=== PATIENT | male | born 1935 ===

== ENCOUNTER → 2018-10-04 | Outpatient (CLI) | payer OTHER ==
[~2018-10-04] MED LIST: REGADENOSON 0.4 MG/5 ML DISP.SYRIN. IV ONE
--- NOTE | 2018-10-04 12:38 | RAD ---
MR#: [id number] Date of Study: 10/04/2018 Ordering Physician: LOGAN IVY Referring Physician: SUMA FABIAN Tech: RT Mili Burnett) (N) APPROVED REPORT Test Type: Pharmacological Stress Nurse/Tech: Jerrica Wright RN Test Indications: Dyspnea on exertion Cardiac History: Hypertension, Diabetes Medications: See Electronic Medical Record Medical History: See Electronic Medical Record Resting ECG: SR with BBB Resting Heart Rate: 66 bpm Resting Blood Pressure: 156/62mmHg Pretest Chest Pain: No chest pain Nurse/Tech Notes S1,S2 and lungs clear to auscultation. Consent: The procedure was explained to the patient in lay terms. Informed consent was witnessed. Addison eout was entered into [facility]. History and Stress Test performed by RT Sanjana (R) (N) Pharm. Details Pharmacologic stress testing was performed using 0.4mg per 5ml of regadenoson given intravenously ove r 7-10 seconds. Stress Symptoms No chest pain or symptoms. POST EXERCISE Reason for Termination: Infusion complete Target HR: No Max HR: 82 bpm Max Blood Pressure: 145/47mmHg Blood Pressure response to exercise: Normal blood pressure response during stress. Heart Rate response to exercise: WNL Chest Pain: No. Arrhythmia: No. ST Change: No. INTERPRETATION Stress EKG Conclusion: The resting EKG shows a sinus rhythm, left anterior fascicular block and nonsp ecific ST-T wave changes. The stress EKG shows no significant changes from baseline. No EKG evidence of stressed induced ischemia. Imaging Protocol IMAGE PROTOCOL: Rest Tc-99m/stress Tc-99m 1 day Rest: Stress: Viability: Radiopharm.Tc99m CtbdfpexzLm59j Sestamibi Xbom31yMe 34mCi Duration 13min. 13min. Img Date 10/04/2018 10/04/2018 Inj-Img [id number]. 60min. Rest Admin Site:IV - Left HandAdministrator:RT Nicole AllanR)(N) Stress Admin Site: IV - Left HandAdministrator: Miki Del Rio, RT (R)(N) STRESS DATA End Diast. Vol.75.0mlLVEDV index BSA46.0ml End Syst. Vol.33.0mlLVESV index BSA20.0ml Myocardial Jjyn803.0gEject. Kbynobfx41.0% Stress Scores Regional WT1.00Summed WT10.00 Regional WM0.00Summed WM13.00 LV Perfusion Stress scans show no significant defects. Rest scans showed no significant defects. Nuclear imaging shows no reversible ischemia or infarct. Wall Motion Left ventricular systolic function is intact with an ejection fraction of 56%. The inferior wall is s lightly less vigorous than the remaining call. LV Perf. Quant 17 Seg. SSS4.00 17 Seg. SRS5.00 17 Seg. SDS0.00 Stress Defect Extent (% LAD)0.00Rest Defect Extent (% LAD)0.00Rev. Defect Extent (% LAD)0.00 Stress Defect Extent (% LCX) 36.30Rest Defect Extent (% LCX)35.00Rev. Defect Extent (% LCX)0.00 Stress Defect Extent (% RCA)0.00Rest Defect Extent (% RCA)0.00Rev. Defect Extent (% RCA)0.00 Stress Defect Extent (% DAVE)6.50Rest Defect Extent (% DAVE)7.40Rev. Defect Extent (% DAVE)0.00 Conclusion 1. No EKG evidence of stressed induced ischemia. 2. Nuclear imaging shows no reversible ischemia or infarct. 3. Left ventricular systolic function is intact with an ejection fraction of 56%. 4. Moderately low risk Lexiscan nuclear stress test. Signed by : Saurav Gan MD Electronically Approved : 10/04/2018 12:38:01
== END | disposition home or self-care (01) ==
LOC: NM 08:12
PROVIDERS: ATTEND Internal Medicine Cardiovascular Disease
DX: I44.4 Left anterior fascicular block (principal); I10 Essential (primary) hypertension; E11.9 Type 2 diabetes mellitus without complications
CPT/HCPCS: 78452; 93017; A9500; J2785